=== PATIENT | male | born 1985 | race Caucasian/White ===

== ENCOUNTER → 2020-05-11 09:42 | Outpatient (BNVA) | payer OTHER, SELFPAY | PROVIDERS: Family Provider Nurse Practitioner Family; PCP Nurse Practitioner Family; Visit Provider Nurse Practitioner Family | DX: M25.471 Effusion, right ankle (principal); M19.071 Primary osteoarthritis, right ankle and foot; X58.XXXA Exposure to other specified factors, initial encounter; S99.911A Unspecified injury of right ankle, initial encounter | CPT/HCPCS: 73610 ==